=== PATIENT | male | born 1970 | race African-American/Black ===

== ENCOUNTER → 2017-03-07 | Outpatient (CLI) | payer MEDICARE, OTHER ==
[~2017-03-07] MED LIST: AUGMENTIN; CLARITIN10 M2 PO; DEPAKOTE; DETROL LA PO; DOCUSATE SODIU100 MG; FLOMAX0.4 M1 PO; KLONOPIN1 MG PO; LOPRESSOR PO; OMEPRAZOLE20 M1 PO; PROAIR HFA8.5 GM; SYMBICORT; ULTRAM; ZESTRIL10 M2 PO; ZYPREXA20 MG PO
[2017-03-07 17:20] LABS: BASOPHIL% 0.5 % (0-2.5); EOSINOPHIL% 0.2 % (0.0-7.0); HEMATOCRIT 33.5 % (38.0-50.0); HEMOGLOBIN 10.8 gm/dL (13.0-16.0); LYMPHOCYTE# 1.4 X10e3 (1.0-3.5); LYMPHOCYTE% 24.2 % (17.0-45.0); MEAN CELL VOLUME 73.7 FL (83-96); MEAN CORPUSCULAR HEMOGLOBIN 23.7 PG (28-34); MEAN CORPUSCULAR HGB CONC 32.2 g/dL (30-36); MEAN PLATELET VOLUME 9.7 FL (6.5-11.5); MONOCYTE# 0.4 X10e3 (0-1.0); MONOCYTE% 6.4 % (3.0-12.0); NEUTROPHIL# 3.9 X10e3 (1.5-7.1); NEUTROPHIL% 68.7 % (40-75); PLATELET COUNT 158 X10e3 (140-420); RED BLOOD COUNT 4.55 X10e (3.90-5.60); RED CELL DISTRIBUTION WIDTH 14.8 % (11.0-15.5); WHITE BLOOD COUNT 5.7 X10e3 (4.0-10.5)
[2017-03-07 17:22] LABS: DIFF IND NO
[2017-03-07 17:48] LABS: ALBUMIN SERUM 4.2 g/dL (3.5-5.0); BILIRUBIN,TOTAL 1.3 mg/dL (0.2-2.0); BUN/CREATININE RATIO 13.75; CALCIUM SERUM 9.3 mg/dL (8.4-10.2); CREATININE SERUM 0.8 mg/dL (0.6-1.4); GLOM FILT RATE Estimated 125.1 mL/min (>60); POTASSIUM 3.9 mmol/L (3.5-5.1); PROTEIN TOTAL SERUM 7.2 g/dL (6.0-8.3)
[2017-03-07 18:14] LABS: THYROID STIMULATING HORMONE 1.01 uIU/ml (0.34-5.60)
[2017-03-07 18:19] LABS: %MB 0.4 % (0.0-4.0); MB 1.7 ng/ml
[2017-03-07 18:21] LABS: FREE THYROXIN (T4) 1.06 ng/dL (0.58-1.64)
== END | disposition home or self-care (01) ==
LOC: CLAB 16:30
PROVIDERS: Family Medicine
DX: Z51.81 Encounter for therapeutic drug level monitoring (principal); R41.0 Disorientation, unspecified; J02.9 Acute pharyngitis, unspecified; Z79.899 Other long term (current) drug therapy
CPT/HCPCS: 36415; 80053; 80164; 82140; 82550; 82552; 82553; 83605; 83735; 84439; 84443; 84484; 85025; 85660; 86255; 86308

== ENCOUNTER 2017-03-17 13:51 | Emergency (ER) | payer MEDICARE, OTHER ==
--- NOTE | ~2017-03-17 | CT4 ---
[facility] A Service of [facility] RADIOLOGY TEXT RESULTS PATIENT: MARY PENA LOCATION: SED : 72 UNIT #: [id number] AGE: [address]: London Munoz MD SEX: M ORDER DR: [id number] [address] [address] [id number] E MR#: [id number] #: [id number] NAME: MARY PENA : 1970 SEX: M STUDY DATE/TIME: 03/18/2017 UNIT: SED ROOM: STUDY DESCRIPTION: CT Abd and Pelv Wo Cont Attending Physician: London Munoz M.D. Primary Care Physician: Addison Cancino M.D. MEDICAL IMAGING REPORT This report is preliminary unless electronic signature is present. EXAM CT abdomen and pelvis without contrast 03/17/2017, 1535 hours HISTORY Abdominal pain. Confusion. The patient is been evaluated at [place] and at her primary care doctor 3 times for similar symptoms. Pain is diffuse, vague and undefined. COMPARISON None. TECHNIQUE Helical non-contrasted images were obtained from the lung bases through the pubic symphysis without oral or intravenous contrast. Sagittal and coronal reconstructions were performed. Total exam DLP 823 mGy/cm. This CT exam was performed with one or more of the following radiation dose reduction techniques: automatic exposure control, adjustment of mA and/or kV according to patient size, and iterative reconstruction. FINDINGS Images through the lung bases demonstrate mild ground-glass density at both lung bases. Atelectasis and vascular crowding is favored over an infiltrate. There are no effusions. Non-contrasted images through the abdomen are somewhat degraded by streak artifact from the patient's right arm. No definite liver lesion is seen. The spleen and pancreas are normal. The bile ducts are normal. The adrenal glands and kidneys are unremarkable. The abdominal aorta is normal in caliber with mild atherosclerotic calcification present. The stomach contains liquid and solid food debris and is distended. There is no wall thickening. There is no small bowel distension. There is no STS. [facility] A Service of [facility] RADIOLOGY TEXT RESULTS PATIENT: MARY PENA LOCATION: SED : 72 UNIT #: [id number] AGE: [address]: London Munoz MD SEX: M ORDER DR: evidence of appendicitis. There is a generalized increased amount of stool in the colon extending from the cecum through the ascending colon, transverse colon, descending colon and rectosigmoid colon. Findings are most suggestive of constipation. The bladder is normal. There is evidence of an old healed right iliac wing fracture. No acute fracture is seen. IMPRESSION 1. Exam is limited by the lack of oral and intravenous contrast. There is some streak artifact on the images through the right upper quadrant due to the patient's arm being at the side. 2. There is a large amount of stool throughout the colon and rectum suggesting [id number] constipation. 3. Mottled appearance to the liver is likely related to the streak artifact from the patient's arm. No intrinsic liver lesion is suspected. 4. No renal or ureteral calculi. 5. Normal appendix. 6. Old healed right iliac wing fracture. Dictated by... Emily Hernández M.D. THIS IS AN ELECTRONICALLY VERIFIED REPORT Emily Hernández M.D. at 03/18/2017 9:26 AM Usama TD: 03/18/2017 00:36 JOB #: [id number] MEDICAL IMAGING REPORT Page 1 of 1
--- NOTE | ~2017-03-17 | CT71 ---
[facility] A Service of [facility] RADIOLOGY TEXT RESULTS PATIENT: MARY PENA LOCATION: SED : 71 UNIT #: [id number] AGE: [address]: London Munoz MD SEX: M ORDER DR: [id number] [address] [address] [id number] E MR#: [id number] Acc #: [id number] NAME: MARY PENA : 1970 SEX: M STUDY DATE/TIME: 03/17/2017 15:30 UNIT: SED ROOM: STUDY DESCRIPTION: CT Head Wo Contrast Attending Physician: London Munoz M.D. Ordering Physician: London Munoz M.D. Primary Care Physician: Addison Cancino M.D. MEDICAL IMAGING REPORT This report is preliminary unless electronic signature is present. EXAM CT head, 03/17/2017 HISTORY Altered mental status. Confusion. Abdomen pain, handicapped seen CT Giddings's/PND x3 times. CP/ADHD, VAGE/undefined pain. Not acting the same, distressed, points to abdomen couple of days. TECHNIQUE This CT exam was performed with one or more of the following radiation dose reduction techniques: automatic exposure control, adjustment of mA and/or kV according to patient size, and iterative reconstruction. FINDINGS CT head performed skull base through vertex without intravenous contrast. Comparison 08/09/2016. Multiple images significantly degraded by streak/motion artifact. No gross brainstem or cerebellum abnormality is seen but these regions are significantly degraded by motion/streak artifact. The cerebral hemispheres show normal castellanos matter - white matter differentiation. There is a focal area of diminished density at the posterior inferior right lentiform nucleus unchanged from prior examination and favored to be either dilated perivascular space or chronic lacunar infarct. There is no clearly acute basal ganglia abnormality. The midline structures are nondisplaced and the ventricles, cisterns and sulci are normal in size and contour. There is no intra or extraaxial mass effect or abnormal intracranial fluid collection. The intraorbital soft tissues are unremarkable in their visualized extent. The visualized paranasal sinuses and mastoid air cells notable for probable mucous retention cyst in the right maxillary sinus. No fracture. There are areas of apparent skin thickening anterior-superior midline forehead and right paracentral forehead. It is possible that these are at least in part artifactual. They are new compared to the prior examination and in STS. [facility] A Service of [facility] RADIOLOGY TEXT RESULTS PATIENT: MARY PENA LOCATION: SED : 71 UNIT #: [id number] AGE: [address]: London Munoz MD SEX: M ORDER DR: the appropriate clinical context could be a reflection of trauma. Correlate with exam and history. There is no soft tissue defect, subcutaneous air or radiodense foreign body. IMPRESSION 1. Motion-degraded study. No clearly acute abnormality is seen in the brain. If the patient has ongoing neurologic symptoms, given limitations of this examination, followup imaging would be recommended. 2. Chronic area of decreased density inferior right lentiform nucleus most consistent with dilated perivascular space or chronic lacunar infarct. 3. There is no fracture. 4. There is mild skin thickening and subcutaneous haziness in the anterior superior midline forehead/scalp and right paracentral frontal scalp. Some component of this appearance may be artifactual. The appearance is nonspecific and could reflect interval intervention in this region or sequelae of trauma. Please correlate with exam and history. 5. Mucous retention cyst right maxillary sinus. Dictated by... Abdirizak Cordova M.D. THIS IS AN ELECTRONICALLY VERIFIED REPORT Abdirizak Cordova M.D. at 03/18/2017 10:45 PM VINEET/ashley TD: 03/18/2017 02:02 JOB #: [id number] MEDICAL IMAGING REPORT Page 1 of 1
[2017-03-17] MEDS ORDERED: AUGMENTIN (14:13)
[2017-03-17] MEDS ORDERED: KLONOPIN1 MG PO (14:13)
[2017-03-17] MEDS ORDERED: DOCUSATE SODIU100 MG (14:13)
[2017-03-17] MEDS ORDERED: DEPAKOTE (14:13)
[2017-03-17] MEDS ORDERED: ZESTRIL10 M2 PO (14:13)
[2017-03-17] MEDS ORDERED: ZYPREXA20 MG PO (14:14)
[2017-03-17] MEDS ORDERED: CLARITIN10 M2 PO (14:14)
[2017-03-17] MEDS ORDERED: FLOMAX0.4 M1 PO (14:14)
[2017-03-17] MEDS ORDERED: OMEPRAZOLE20 M1 PO (14:14)
[2017-03-17] MEDS ORDERED: SYMBICORT (14:14)
[2017-03-17] MEDS ORDERED: LOPRESSOR PO (14:14)
[2017-03-17] MEDS ORDERED: ULTRAM (14:15)
[2017-03-17] MEDS ORDERED: PROAIR HFA8.5 GM (14:15)
[2017-03-17] MEDS ORDERED: DETROL LA PO (14:15)
[2017-03-17 15:01] LABS: BASOPHIL% 0.4 % (0-2.5); EOSINOPHIL% 0.3 % (0.0-7.0); HEMATOCRIT 28.9 % (38.0-50.0); HEMOGLOBIN 9.6 gm/dL (13.0-16.0); LYMPHOCYTE# 1.2 X10e3 (1.0-3.5); LYMPHOCYTE% 29.2 % (17.0-45.0); MEAN CORPUSCULAR HEMOGLOBIN 24.2 PG (28-34); MEAN CORPUSCULAR HGB CONC 33.2 g/dL (30-36); MEAN PLATELET VOLUME 9.5 FL (6.5-11.5); MONOCYTE# 0.2 X10e3 (0-1.0); MONOCYTE% 5.8 % (3.0-12.0); NEUTROPHIL# 2.7 X10e3 (1.5-7.1); NEUTROPHIL% 64.3 % (40-75); PLATELET COUNT 179 X10e3 (140-420); RED BLOOD COUNT 3.96 X10e (3.90-5.60); WHITE BLOOD COUNT 4.2 X10e3 (4.0-10.5)
[2017-03-17 15:02] LABS: DIFF IND NO
[2017-03-17 15:07] LABS: URINE SOURCE CLEAN CATCH
[2017-03-17 15:09] LABS: URINE APPEARANCE CLEAR; URINE BILIRUBIN NEG (NEG); URINE BLOOD NEG (NEG); URINE COLOR YELLOW; URINE GLUCOSE NEG (NORM); URINE KETONE 1+ (NEG); URINE LEUKOCYTE ESTERASE NEG (NEG); URINE NITRATE NEG (NEG); URINE PH 6.5 (5-8); URINE PROTEIN NEG (NEG); URINE SPECIFIC GRAVITY 1.015 (1.003-1.035); URINE UROBILINOGEN 0.2 MG/DL (NORM)
[2017-03-17 15:11] LABS: MICRO INDICATED? NO
[2017-03-17 15:19] LABS: BUN/CREATININE RATIO 11.11; CALCIUM SERUM 8.5 mg/dL (8.4-10.2); CREATININE SERUM 0.9 mg/dL (0.6-1.4); GLOM FILT RATE Estimated 119.1 mL/min (>60); POTASSIUM 3.6 mmol/L (3.5-5.1)
== END 2017-03-17 17:20 | disposition home or self-care (01) ==
LOC: SED 13:51
PROVIDERS: Emergency Medicine
DX: R41.82 Altered mental status, unspecified (principal); K59.00 Constipation, unspecified; D64.9 Anemia, unspecified; K21.9 Gastro-esophageal reflux disease without esophagitis; I10 Essential (primary) hypertension; Z98.890 Other specified postprocedural states; Z79.899 Other long term (current) drug therapy
CPT/HCPCS: 36415; 70450; 74176; 80048; 80164; 81003; 85025; 96372; 99285; J1630; J2060; J3486

== ENCOUNTER 2017-03-27 15:10 | Emergency (ER) | payer MEDICARE, OTHER ==
[~2017-03-27] VITALS: Ht 170.2 cm; Wt 65.3 kg
== END 2017-03-27 16:00 | disposition left against medical advice (07) ==
LOC: CED 15:10
DX: Z53.21 Procedure and treatment not carried out due to patient leaving prior to being seen by health care provider (principal)

== ENCOUNTER 2017-03-27 16:38 | Emergency (ER) | payer MEDICARE, OTHER | END 2017-03-27 17:15 | disposition home or self-care (01) | LOC: SED 16:38 | DX: R45.1 Restlessness and agitation (principal); K21.9 Gastro-esophageal reflux disease without esophagitis; I10 Essential (primary) hypertension; Z79.899 Other long term (current) drug therapy | CPT/HCPCS: 82947; 99284 ==